=== PATIENT | male | born 1930 | race Caucasian/White ===

== ENCOUNTER 2019-10-03 09:13 | Emergency (ER) | payer MEDICARE, OTHER ==
--- NOTE | 2019-10-03 10:23 | EDM.PDOC ---
ED HPI GENERAL MEDICAL PROBLEM - General Chief Complaint: ENT Problem Stated Complaint: SORE THROAT,BODY ACHES Time Seen by Provider: 10/03/19 10:10 Source of Information: Reports: Patient, Family, RN Notes Reviewed History Limitations: Reports: No Limitations - History of Present Illness INITIAL COMMENTS - FREE TEXT/NARRATIVE: 88-year-old gentleman presents emergency department a complaint of sore throat body aches, he states his been ill for about 2 days has not had any fever has had difficulty sleeping has not tried any medications, is concerned he may need an antibiotic throat Pain Score (Numeric/FACES): 6 - Related Data Allergies Allergy/AdvReac Type Severity Reaction Status Date / Time latex Allergy Rash Verified 10/03/19 10:04 Sulfa (Sulfonamide Allergy Rash Verified 10/03/19 10:04 Antibiotics) Home Meds: Home Meds Amantadine [Symmetrel] 100 mg PO BID 10/03/19 [History] Metoprolol Succinate [Toprol XL] 12.5 mg PO DAILY 10/03/19 [History] Past Medical History Cardiovascular History: Reports: Hypertension Gastrointestinal History: Reports: Chronic Constipation Musculoskeletal History: Reports: Other (See Below) Other Musculoskeletal History: broke right leg as a child Neurological History: Reports: Parkinson's - Past Surgical History HEENT Surgical History: Reports: Cataract Surgery Cardiovascular Surgical History: Reports: None GI Surgical History: Reports: None Neurological Surgical History: Reports: None Social & Family History - Tobacco Use Smoking Status *Q: Never Smoker Second Hand Smoke Exposure: No - Caffeine Use Caffeine Use: Reports: Coffee - Recreational Drug Use Recreational Drug Use: No ED ROS GENERAL - Review of Systems Review Of Systems: See Below (Swallowing water after dinner) Constitutional: Denies: Fever HEENT: Reports: Sinus Problem, Throat Pain, Throat Swelling Respiratory: Reports: No Symptoms Cardiovascular: Reports: No Symptoms GI/Abdominal: Reports: No Symptoms ED EXAM, GENERAL - Physical Exam Exam: See Below Exam Limited By: No Limitations General Appearance: Alert, WD/WN, No Apparent Distress Ears: Normal External Exam, Normal Canal, Hearing Grossly Normal, Normal TMs Nose: Normal Inspection, Normal Mucosa, No Blood Throat/Mouth: Normal Inspection, Normal Lips, Normal Teeth, Normal Gums, Normal Oropharynx, Normal Voice, No Airway Compromise Head: Atraumatic, Normocephalic Neck: Normal Inspection, Supple, Non-Tender, Full Range of Motion Respiratory/Chest: No Respiratory Distress, Lungs Clear, Normal Breath Sounds, No Accessory Muscle Use, Chest Non-Tender Cardiovascular: Regular Rate, Rhythm, No Murmur GI/Abdominal: Soft, Non-Tender Course - Vital Signs Last Recorded V/S: Last Vital Signs Temp 96.0 F L 10/03/19 09:53 Pulse 61 10/03/19 09:53 Resp 14 10/03/19 09:53 BP 137/64 10/03/19 09:53 Pulse Ox 99 10/03/19 09:53 - Orders/Labs/Meds Orders: Active Orders 24 hr Category Date Time Status CULTURE STREP A CONFIRMATION [RM] Stat Lab 10/03/19 09:29 Results STREP SCRN A RAPID W CULT CONF [RM] Stat Lab 10/03/19 09:29 Results Departure - Departure Time of Disposition: 10:22 Disposition: Home, Self-Care 01 Condition: Fair Clinical Impression: Viral syndrome - Discharge Information Instructions: Viral Illness, Adult Referrals: PCP,None [Primary Care Provider] - Additional Instructions: Use Tylenol or Motrin as needed for aches and pains of the body, try Cepacol lozenges or Chloraseptic spray for sore throat, please followup with your primary care provider in 3-5 days if not better, please call return to the emergency department with worsening of symptoms. Sepsis Event Note - Evaluation Sepsis Screening Result: No Definite Risk - Focused Exam Vital Signs: Vital Signs Temp Pulse Resp BP Pulse Ox 10/03/19 09:53 96.0 F L 61 14 137/64 99 Date Exam was Performed: 10/03/19 Time Exam was Performed: 10:19 - My Orders Last 24 Hours: My Active Orders 10/03/19 09:29 CULTURE STREP A CONFIRMATION [RM] Stat STREP SCRN A RAPID W CULT CONF [RM] Stat - Assessment/Plan Last 24 Hours: My Active Orders 10/03/19 09:29 CULTURE STREP A CONFIRMATION [RM] Stat STREP SCRN A RAPID W CULT CONF [RM] Stat Plan: Assessment Acuity = acute Site and laterality = viral syndrome Etiology = unknown Manifestations = body aches, pharyngitis Location of injury = Home Lab values = rapid strep was done negative culture is pending Plan Recommend symptomatic care at this time Cepacol lozenges Chloraseptic Draper, follow-up primary care 3 to 5 days if not better This note was dictated using [employer] voice recognition software please call with any questions on syntax or grammar.
== END 2019-10-03 10:34 | disposition home or self-care (01) ==
LOC: JP.ED 09:13
DX: B34.9 Viral infection, unspecified (principal); I10 Essential (primary) hypertension; Z88.2 Allergy status to sulfonamides; Z91.040 Latex allergy status; Z79.899 Other long term (current) drug therapy
CPT/HCPCS: 87081; 87880-QW; 99282; 99283